=== PATIENT | male | born 1950 | race Caucasian/White ===

== ENCOUNTER 2018-05-25 07:27 | Inpatient (IN) ==
[2018-05-25] MEDS ORDERED: Metoprolol Tartrate 25 MG Tablet PO ONE (08:02)
[2018-05-25] MEDS ORDERED: Chlorhexidine Gluconate 2% 1 Pack (2 Cloths) TOPICAL ONE (08:02)
[2018-05-25] MEDS ORDERED: Chlorhexidine 4% Topical 120 APPLIC/120 ML Bottle TOPICAL SCH (08:15)
[2018-05-25] MEDS ORDERED: Sodium Chlor 0.9% Inj 80 ML, Bupivacaine Liposo PF 1.3% Inj 20 ML P-ARTICULR SCH ×2 (08:15)
[2018-05-25] MEDS ORDERED: Bupivacaine 0.5% Inj 50 ML MDV Vial ONE (08:52)
[2018-05-25] MEDS ORDERED: SODIUM CHLOR 0.9% IV.SIG SCH ×2 (09:00→11:08)
[2018-05-25] MEDS ORDERED: ceFAZolin 2 GM Premix Inj 2 GM/50 ML PIGGYBACK IV.SIG SCH (09:00)
[2018-05-25] MEDS ORDERED: TRANEXAMIC ACID IV.SIG SCH ×2 (09:00→11:08)
[2018-05-25] MEDS ORDERED: Sodium Chlor 0.9% Inj 500 ML IV.SIG SCH (09:00)
[2018-05-25] MEDS ORDERED: Acetaminophen 325 MG Tablet PO PRN (09:22)
[2018-05-25] MEDS ORDERED: Bisacodyl 10 MG Supp RECTAL PRN (09:22)
[2018-05-25] MEDS ORDERED: Tranexamic Acid Inj 0 MG in Sodium Chlor 0.9% Inj 100 ML IV.SIG ONE (09:22)
[2018-05-25] MEDS ORDERED: Aluminum/Magnesium/Simethacone Susp 30 ML UDC PO PRN (09:22)
[2018-05-25] MEDS ORDERED: Post-op Orders (for Pharmacy) OTHER STA (09:22)
--- NOTE | 2018-05-25 09:27 | P.DCO ---
- Physical Therapy Physical Therapy: Gait training Knee: Total knee, Protocol: Right, Gait training, Full weight bearing Right Lower Extremity Weight Bearing: Weight bearing as tolerated Right Lower Extremity Range of Motion: Active ROM (Active, active assisted and passive range of motion. Range of motion goal is 0 degrees extension to 135 degrees of flexion. Range of motion achieved in the operating room was 0 degrees extension to 140 degrees of flexion.) - Nursing Nursing: Dressing changes Dressing changes: Daily dressing change, Coverderm/Primapore Additional instructions: Do not remove the Dermabond Prineo (the tape on the wound). - Certification Need for Home Health services: I have seen patient Benjamín Esparza on 05/25/18. My clinical findings support the need for the requested home health care services because: Need for Home Health Services: Deconditioned with increased weakness, Limited ability to care for self, High risk of falls Homebound Certification: I certify that my clinical findings support that this patient is homebound because: Homebound Certification: Post-op weakness, Unsteady gait/balance, Unsafe to leave home unassisted
[2018-05-25] MEDS ORDERED: Morphine Sulfate Inj 2 MG/ML Vial IV.PUSH PRN (09:45)
[2018-05-25] MEDS ORDERED: Propofol Inj 500 MG/50 ML Vial ONE (09:59)
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
[2018-05-25] MEDS ORDERED: Bupivacaine/Dextrose 0.75% Inj 2 ML Ampul ONE (14:21)
[2018-05-25] MEDS ORDERED: *morphine SULFATE 8 MG/ML PERIprocedure ONLY ONE ×2 (14:22→14:46)
[2018-05-25] MEDS: Ketorolac Inj 30 MG/ML (IVP) Vial IV.PUSH SCH ×3 (14:27→23:50)
--- NOTE | 2018-05-25 14:32 | XR ---
EXAM DATE: 05/25/2018 9:21 AM EDT AGE/SEX: 67 years / Male INDICATIONS: Post op right knee surgery. CLINICAL DATA: This is the patient's initial encounter. Patient reports that signs and symptoms have been present for 1 day and indicates a pain score of Nonresponsive. MEDICAL/SURGICAL HISTORY: Non-responsive. Non-responsive. COMPARISON: POI, XR KNEE COMPLETE, RIGHT, 04/20/2018. . FINDINGS: Status post placement of a right knee prosthesis. There is good position and alignment of the knee pr osthesis. Postsurgical changes are demonstrated. The bony structures are grossly intact. CONCLUSION: Good position and alignment of the knee prosthesis. Electronically signed by: Ronen Bolton MD 05/25/2018 2:30 PM EDT
--- NOTE | 2018-05-25 15:03 | P.CONIM ---
[facility] of [facility] Illness [facility]: 05[facility]25[facility]18 Requesting Physician: Benjamín Neff Reason for Consult: opinion andrecommendations on treatment of patient's hyperlipidemia Primary Care Provider: Markos Cheng MD Family Provider: Markos Cheng MD History of Present Illness: 67-year-old white male with a history of osteoarthritis, hyperlipidemia who has had a long history of right knee pain despite conservative treatment and electively underwent a right total knee arthroplasty with Dr. Neff orthopedic surgery today. Currently he is seen in the PACU in is sleepy from just receiving morphine for pain. He tells me that he usually does not take a medication for his blood pressure and is adequately controlled well at home. He reports he does occasionally struggle with constipation. He has not seen any blood in his stools. He has no other complaints at this time. No chest pain or shortness of breath. He plans to go home with home health care and states that he has a good support system at home. Review of Systems All other systems reviewed negative except as stated in HPI PMFSH - History History Provided By: Patient - Medical History Medical History: Medical History (Last Reviewed 05/25/18 @ 14:56 by Michelle Romero MD) Nausea and vomiting after administration of anesthetic agent Arthritis High cholesterol Separation of left acromioclavicular joint Tear of left biceps muscle Traumatic brain injury - Surgical History Surgical History: Surgical History (Last Reviewed 05/25/18 @ 14:57 by Michelle Romero MD) H/O colonoscopy H/O arthroscopy H/O repair of left rotator cuff H/O shoulder surgery H/O skin graft History of rosalie hole surgery History of repair of anterior cruciate ligament of left knee History of total left knee replacement Hx of tonsillectomy S/P wrist surgery Status post LASIK surgery of both eyes - Family History Family History: Family History (Last Updated 05/25/18 @ 14:57 by Michelle Romero MD) Other Family history unknown - Social History I have reviewed the patient's Social History: Yes - Tobacco History Second Hand Smoke Exposure: No Smoking Status: Never smoker - Alcohol History How Often Do You Have a Drink Containing Alcohol: Monthly or less - Substance Use History Substance History: No History of Abuse - Travel History Recent Travel in the [place] Within the Last 8 Weeks: No Recent Travel Out of the Country Within the Last 8 Weeks: No Medications and Allergies Active Medications: Active Medications Acetaminophen (Tylenol) 650 mg PO Q6H PRN PRN Reason: Pain Less Than 3 On Scale Hydrocodone Bitart/Acetaminophen ([place] 7.5/325) 1 tab PO Q4H PRN PRN Reason: PAIN SCALE 4 TO 6 MODERATE Hydrocodone Bitart/Acetaminophen ([place] 7.5/325) 2 tab PO Q6H PRN PRN Reason: PAIN SCALE 7 TO 10 SEVERE Al Hydrox/Mg Hydrox/Simethicone (Mag-Al Plus Susp Liq) 30 ml PO Q6H PRN PRN Reason: INDIGESTION Al Hydroxide/Mg Hydroxide (Milk Of Magnesia Liq) 30 ml PO BID PRN PRN Reason: Mild Constipation Aspirin (Aspirin Chew) 81 mg PO BID [facility] Bisacodyl (Dulcolax Supp) 10 mg RECTAL DAILY PRN PRN Reason: SEVERE CONSITIPATION Chlorhexidine Gluconate (Hibiclens 4% Topical) 1 applicatio TOPICAL ONCE GOVIND Stop: 05/29/18 08:14 Last Admin: 05/25/18 08:41 Dose: 1 applicatio Sodium Chloride 80 ml/ (Bupivacaine Liposome 20 ml) 0 ml P-ARTICULR ONCE GOVIND Stop: 05/25/18 15:00 Last Admin: 05/25/18 11:13 Dose: 1.3 bag Diphenhydramine HCl (Benadryl) 25 mg PO Q6H PRN PRN Reason: ITCHING Lactated Ringer's (Lr 1000 Ml Inj) 1,000 mls @ 30 mls/hr IV.SIG .Q24H [facility] Stop: 05/26/18 08:14 Last Infusion: 05/25/18 11:55 Dose: Infused Sodium Chloride (Ns Inj) 500 mls @ 30 mls/hr IV.SIG .Q10H GOVIND Last Admin: 05/25/18 14:29 Dose: Not Given Tranexamic Acid 910 mg/ Sodium (Chloride) 109.1 mls @ 200 mls/hr IV.SIG ONCE GOVIND Stop: 05/25/18 15:00 Last Infusion: 05/25/18 11:15 Dose: Infused Tranexamic Acid 910 mg/ Sodium (Chloride) 109.1 mls @ 200 mls/hr IV.SIG ONCE GOVIND Stop: 05/25/18 16:00 Last Admin: 05/25/18 14:10 Dose: 200 mls/hr Cefazolin Sodium/Dextrose (Ancef 2 Gm Premix Inj) 2 gm in 50 mls @ 100 mls/hr IV.SIG TELEPHONE ORDER CLERK [facility] Stop: 05/29/18 08:59 Last Infusion: 05/25/18 11:15 Dose: Infused Cefazolin Sodium 1,000 mg/ (Sodium Chloride) 100 mls @ 200 mls/hr IV.SIG Q6H [facility] Stop: 05/26/18 05:29 Lactated Ringer's (Lr 1000 Ml Inj) 1,000 mls @ 80 mls/hr IV.CONT .[id number] [facility] Last Admin: 05/25/18 14:28 Dose: 80 mls/hr Ketorolac Tromethamine (Toradol Inj) 15 mg IV.PUSH Q6H [facility] Stop: 05/27/18 06:01 Last Admin: 05/25/18 14:27 Dose: 15 mg Lactulose (Lactulose Liq) 30 ml PO DAILY PRN PRN Reason: SEVERE CONSITIPATION Miscellaneous Information (Misc Nursing Information) 1 each OTHER UNSCH PRN PRN Reason: SEE LABEL COMMENTS Stop: 05/26/18 14:26 Morphine Sulfate (Morphine Inj) 2 mg IV.PUSH Q3H PRN PRN Reason: BREAKTHROUGH PAIN Ondansetron HCl (Zofran Odt) 4 mg PO Q6H PRN PRN Reason: NAUSEA OR VOMITING Pravastatin Sodium (Pravachol) 40 mg PO DAILY [facility] Senna/Docusate Sodium (Ellen-Colace) 1 tab PO BID [facility] Sennosides (Senokot) 17.2 mg PO BID PRN PRN Reason: Moderate Constipation Sodium Chloride (Ns Flush) 2 ml IV.FLUSH PRN PRN PRN Reason: FLUSH AFTER USING IV ACCESS Sodium Chloride (Ns Flush) 2 ml IV.FLUSH BID [facility] Zolpidem Tartrate (Ambien) 5 mg PO HS PRN PRN Reason: INSOMNIA Allergies Allergy/AdvReac Type Severity Reaction Status Date / Time No Known Allergies Allergy Verified 05/25/18 08:25 Home Medications Medication Instructions Recorded Confirmed Type naproxen sodium [Aleve] 220 mg PO BID PRN 05/17/18 05/25/18 History pravastatin 40 mg PO DAILY 05/17/18 05/25/18 History Exam Vital signs: Vital Signs 05/25/18 08:29 05/25/18 09:35 Pulse Rate 61 50 L Respiratory Rate 16 Blood Pressure 112/62 Pulse Oximetry 99 98 Intake & Output 05/24/18 05/25/18 05/25/18 18:59 06:59 18:59 Intake Total 1659.1 / 1659.1 Output Total 100 / 100 Balance 1559.1 / 1559.1 Weight 91 kg Intake: IV 1159.1 / 1159.1 LR 1000 mL Inj 1,000 ML @ 30 1000 / 1000 mls/hr IV.SIG .Q24H [facility] Rx#: [id number] Cyklokapron Inj 910 MG In NS 109.1 / 109.1 Inj 100 ML @ 200 mls/hr IV.SIG ONCE GOVIND Rx#:[id number] Ancef 2 GM Premix Inj 2 gm In 50 / 50 50 ml @ 100 mls/hr IV.SIG TELEPHONE ORDER CLERK GOVIND Rx#:[id number] Anesthesia Amount 500 / 500 Output: Estimated Blood Loss 100 / 100 Other: Weight On Admission 91 kg Narrative: GENERAL: Well-nourished well-developed white male in no acute distress sleepy but arousable SKIN: Warm and dry. HEAD: Atraumatic. Normocephalic. EYES: Pupils equal and round. No scleral icterus. No injection or drainage. ENT: No nasal bleeding or discharge. Mucous membranes pink and moist. NECK: Trachea midline. No JVD. CARDIOVASCULAR: Regular rate and rhythm. RESPIRATORY: No accessory muscle use. Clear to auscultation. Breath sounds equal bilaterally. GASTROINTESTINAL: Abdomen soft, non-tender, nondistended. Hepatic and splenic margins not palpable. MUSCULOSKELETAL: Right lower extremity stabilizing the splint. Bilateral teds NEUROLOGIC: Alert but sleepy due to recent medication given but arousable and oriented to person place and time, was able to move bilateral upper extremities without any difficulty normal speech. Results - Labs Labs: Laboratory Results - last 24 hr 05/25/18 08:16 Blood Type A Positive Antibody Screen Negative - Imaging Impressions Knee X-Ray 05/25/18 09:21 CONCLUSION: Good position and alignment of the knee prosthesis. Assessment and Plan - Plan 67-year-old white male with osteoarthritis 1. Status post right total knee arthroplastycontinue postoperative care, pain control, bowel regimen, physical therapy per orthopedic surgery Dr. Neff 2. Hyperlipidemiacontinue with statin 3. DVT prophylaxis -aspirin per orthopedic surgery Thank you for this consultation.
[2018-05-25] MEDS ORDERED: HYDROmorphone PF Inj 2 MG/ML Vial ONE (15:20)
[2018-05-25] MEDS ORDERED: Influenza (Quadrivalent) Vaccine 0.5 ML Syringe IM ONE (20:00)
[2018-05-25] MEDS: Senna/Docusate Sodium 8.6/50 MG Tablet PO SCH (20:51)
[2018-05-25] MEDS ORDERED: Zolpidem Tartrate 5 MG Tablet PO PRN (21:00)
[2018-05-26] MEDS: Ketorolac Inj 30 MG/ML (IVP) Vial IV.PUSH SCH ×3 (06:01→18:26)
[2018-05-26 07:09] LABS: Hematocrit 33.5 % (39.0-51.0); Hemoglobin 11.6 gm/dL (13.0-17.0)
--- NOTE | 2018-05-26 07:43 | P.PNOP ---
Subjective Interval history: Postop day #1 He is doing well. He has minimal complaints related to his knee at this time. There is minor pain. He does feel that the effects of the medications are still present with him. Physical therapy reports that the ambulation distance was 40 feet. The range of motion was 0 degrees extension to 95 degrees of flexion. Physical Exam Vital signs: Vital Signs 05/25/18 08:29 05/25/18 09:35 05/25/18 14:01 Temperature 97.2 F L Pulse Rate 61 50 L 69 Respiratory Rate 16 12 Blood Pressure 112/62 119/69 Pulse Oximetry 99 98 97 05/25/18 14:15 05/25/18 14:30 05/25/18 14:45 Temperature Pulse Rate 65 55 L 52 L Respiratory Rate 12 11 L 10 L Blood Pressure 119/65 110/56 L 105/56 L Pulse Oximetry 98 98 100 05/25/18 15:00 05/25/18 15:15 05/25/18 15:30 Temperature 97.5 F L Pulse Rate 50 L 52 L 54 L Respiratory Rate 10 L 12 14 Blood Pressure 118/62 116/51 L 104/55 L Pulse Oximetry 99 99 96 05/25/18 15:49 05/25/18 16:00 05/25/18 17:00 Temperature Pulse Rate 50 L 57 L Respiratory Rate 14 12 12 Blood Pressure 111/56 L 117/59 L Pulse Oximetry 95 95 05/25/18 19:44 05/25/18 23:50 05/26/18 04:00 Temperature 97.6 F 97.5 F L 97.8 F Pulse Rate 52 L 59 L 61 Respiratory Rate 18 18 18 Blood Pressure 137/65 123/62 134/64 Pulse Oximetry 96 97 98 Intake & Output 05/25/18 05/26/18 05/26/18 18:59 06:59 18:59 Intake Total 2088.2 / 2088.2 1680 / 1680 Output Total 530 / 530 140 / 140 Balance 1558.2 / 1558.2 1540 / 1540 Weight 91 kg 103.2 kg Intake: IV 1368.2 / 1368.2 1200 / 1200 LR 1000 mL Inj 1,000 ML @ 80 1000 / 1000 mls/hr IV.CONT .[id number] [facility] Rx# :[id number] LR 1000 mL Inj 1,000 ML @ 30 1000 / 1000 mls/hr IV.SIG .Q24H GOV[facility] Rx#: [id number] Cyklokapron Inj 910 MG In NS 218.2 / 218.2 Inj 100 ML @ 200 mls/hr IV.SIG ONCE GOVIND Rx#:[id number] Ancef 2 GM Premix Inj 2 gm In 50 / 50 50 ml @ 100 mls/hr IV.SIG DIALYSIS NURSE GOVIND Rx#:[id number] Ancef Inj 1,000 MG In NS Inj 100 / 100 200 / 200 100 ML @ 200 mls/hr IV.SIG Q6H G[facility]IND Rx#:[id number] Oral 220 / 220 480 / 480 Anesthesia Amount 500 / 500 Output: Urine 300 / 300 Estimated Blood Loss 100 / 100 Wound Drainage 130 / 130 140 / 140 # 1 Right Knee Hemovac 130 / 130 140 / 140 Other: # Voids 2 # Bowel Movements 0 Weight On Admission 91 kg Narrative: He is resting comfortably, supine in bed. The neurovascular status is intact. The dressing is dry and intact. Results - Labs CBC & Chem 7: 05/26/18 05:45 Laboratory Results - last 24 hr 05/25/18 05/26/18 08:16 05:45 Hgb 11.6 L Hct 33.5 L Blood Type A Positive Antibody Screen Negative - Imaging Impressions Knee X-Ray 05/25/18 09:21 CONCLUSION: Good position and alignment of the knee prosthesis. - Procedures Right total knee arthroplasty using Roman Triathlon prosthesis (uncemented) on 05/25/2018. Assessment and Plan - Ortho Post Op Day # 1 - Problem List (1) Status post total right knee replacement not using cement Code(s): Z96.651 - Presence of right artificial knee joint Status: Acute Plan: Continue postop care and PT. - Assessment and Plan Condition: Good. Orthopedically stable. DVT prophylaxis: TEDs, aspirin, sequentials. Discharge plans: Home with home health care. An appointment was scheduled through the office. Prescriptions: [place] 7.5/325; Patient is having significant pain caused by a total knee arthroplasty which will last more than 3 days. Trial of Tylenol has not helped. I believe that it is medically necessary to treat patients pain because it is affecting patients ability to participate in postoperative rehabilitation and perform activities of daily living in a comfortable and efficient manner.
--- NOTE | 2018-05-26 08:22 | P.DS ---
Date of admission: 05/25/18 07:27 Primary care physician: Markos Cheng MD Attending physician on discharge: Benjamín Neff Anticipated date of discharge: 05/26/18 Brief History from admission: This 67-year-old man has had long-standing right knee pain secondary to osteoarthritis that is probably posttraumatic in nature. He has not responded to conservative measures including anti-inflammatory agents, analgesics, activity modification and occasional ambulatory aids. Physical findings showed genu varum with crepitation on range of motion in the medial compartment and patellofemoral compartment, medial laxity and tenderness on motion. Imaging studies showed significant tricompartmental arthritis with subchondral sclerosis in the medial compartment and loss of articular cartilage in areas of all compartments. There were osteophytes as well. 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 The above noted operative procedure was carried out that day. Preoperatively prophylactic antibiotics were administered Ancef according to protocol. These were continued postoperatively. The patient also received tranexamic acid to help with hemostasis according to protocol. In the postanesthesia care unit mechanical methods of DVT prophylaxis were initiated in the form of MARCOS stockings and sequentials. Physical therapy was initiated on the day of surgery. On postoperative day #1 physical therapy continued. DVT prophylaxis with aspirin 81 mg was initiated at this time. The patient continued physical therapy throughout the hospitalization. The distance walked and range of motion improved throughout the hospitalization. The patient was discharged on postoperative day 1 with the disposition being to home with home health care. An appointment for follow-up was made prior to admission. - Time Spent with Patient Total time spent providing and/or coordinating discharge services: Less than 30 minutes - Quality: AMI Clinical Trial Participant: No - Quality: VTE Deep Vein Thrombosis/Pulmonary Embolism Present on Admission: No Exam Vital signs: Vital Signs 05/25/18 08:29 05/25/18 09:35 05/25/18 14:01 Temperature 97.2 F L Pulse Rate 61 50 L 69 Respiratory Rate 16 12 Blood Pressure 112/62 119/69 Pulse Oximetry 99 98 97 05/25/18 14:15 05/25/18 14:30 05/25/18 14:45 Temperature Pulse Rate 65 55 L 52 L Respiratory Rate 12 11 L 10 L Blood Pressure 119/65 110/56 L 105/56 L Pulse Oximetry 98 98 100 05/25/18 15:00 05/25/18 15:15 05/25/18 15:30 Temperature 97.5 F L Pulse Rate 50 L 52 L 54 L Respiratory Rate 10 L 12 14 Blood Pressure 118/62 116/51 L 104/55 L Pulse Oximetry 99 99 96 05/25/18 15:49 05/25/18 16:00 05/25/18 17:00 Temperature Pulse Rate 50 L 57 L Respiratory Rate 14 12 12 Blood Pressure 111/56 L 117/59 L Pulse Oximetry 95 95 05/25/18 19:44 05/25/18 23:50 05/26/18 04:00 Temperature 97.6 F 97.5 F L 97.8 F Pulse Rate 52 L 59 L 61 Respiratory Rate 18 18 18 Blood Pressure 137/65 123/62 134/64 Pulse Oximetry 96 97 98 Intake & Output 05/25/18 05/26/18 05/26/18 18:59 06:59 18:59 Intake Total 2088.2 / 2088.2 1680 / 1680 Output Total 530 / 530 140 / 140 Balance 1558.2 / 1558.2 1540 / 1540 Weight 91 kg 103.2 kg Intake: IV 1368.2 / 1368.2 1200 / 1200 LR 1000 mL Inj 1,000 ML @ 80 1000 / 1000 mls/hr IV.CONT .[id number] GOVIND Rx# :[id number] LR 1000 mL Inj 1,000 ML @ 30 1000 / 1000 mls/hr IV.SIG .Q24H GOVIND Rx#: [id number] Cyklokapron Inj 910 MG In NS 218.2 / 218.2 Inj 100 ML @ 200 mls/hr IV.SIG ONCE GOVIND Rx#:[id number] Ancef 2 GM Premix Inj 2 gm In 50 / 50 50 ml @ 100 mls/hr IV.SIG MICA INSPECTOR GOVIND Rx#:[id number] Ancef Inj 1,000 MG In NS Inj 100 / 100 200 / 200 100 ML @ 200 mls/hr IV.SIG Q6H GOVIND Rx#:[id number] Oral 220 / 220 480 / 480 Anesthesia Amount 500 / 500 Output: Urine 300 / 300 Estimated Blood Loss 100 / 100 Wound Drainage 130 / 130 140 / 140 # 1 Right Knee Hemovac 130 / 130 140 / 140 Other: # Voids 2 # Bowel Movements 0 Weight On Admission 91 kg Narrative: He was resting comfortably, supine in bed. The neurovascular status is intact. The dressing is dry and intact. Results Procedures completed during hospitalization: Right total knee arthroplasty using Roman Triathlon prosthesis (uncemented) on 05/25/2018. Labs on day of discharge: Labs from last 24 hours 05/26/18 05/25/18 05:45 08:16 Hgb 11.6 L Hct 33.5 L Blood Type A Positive Antibody Screen Negative - Impressions ITS Impressions Knee X-Ray 05/25/18 09:21 CONCLUSION: Good position and alignment of the knee prosthesis. Discharge Plan - Discharge Disposition Patient Disposition: /Home Health Service - Discharge Condition Condition: Stable - Discharge Order Discharge Orders: Discharge Order (Routine); Ordered 05/26/18 Ordered By: Benjamín Neff - Discharge Details Anticipated Discharge Date: 05/26/18 - Physicians Team Primary Care Provider: Markos Cheng Attending Provider: Benjamín Neff Other Providers: Michelle Romero MD - Rxs /Orders / Referrals /Forms Prescriptions: New aspirin 81 mg Tablet,Chewable 81 mg PO BID RF: 0 hydrocodone-acetaminophen 7.5-325 mg Tablet 1 tab PO Q4H PRN (Reason: Pain, Severe) 7 Days Qty: 42 RF: 0 Continue naproxen sodium [Aleve] 220 mg Tablet 220 mg PO BID PRN (Reason: Pain) pravastatin 40 mg Tablet 40 mg PO DAILY Referrals: Benjamín Neff MD [Physician] - See Instructions Markos Cheng MD [Primary Care Provider] - See Instructions - Discharge Instructions Patient Printed Instructions: Knee Replacement (DC)
[2018-05-26] MEDS: Senna/Docusate Sodium 8.6/50 MG Tablet PO SCH ×2 (08:59→20:29)
--- NOTE | 2018-05-26 11:06 | P.PNIM ---
Subjective Interval history: Doing well. No other concerns at this time. Pain controlled. Waiting for physical therapy wants to go home if able to be cleared. Physical Exam Vital signs: Vital Signs 05/25/18 14:01 05/25/18 14:15 05/25/18 14:30 Temperature 97.2 F L Pulse Rate 69 65 55 L Respiratory Rate 12 12 11 L Blood Pressure 119/69 119/65 110/56 L Pulse Oximetry 97 98 98 05/25/18 14:45 05/25/18 15:00 05/25/18 15:15 Temperature Pulse Rate 52 L 50 L 52 L Respiratory Rate 10 L 10 L 12 Blood Pressure 105/56 L 118/62 116/51 L Pulse Oximetry 100 99 99 05/25/18 15:30 05/25/18 15:49 05/25/18 16:00 Temperature 97.5 F L Pulse Rate 54 L 50 L Respiratory Rate 14 14 12 Blood Pressure 104/55 L 111/56 L Pulse Oximetry 96 95 05/25/18 17:00 05/25/18 19:44 05/25/18 23:50 Temperature 97.6 F 97.5 F L Pulse Rate 57 L 52 L 59 L Respiratory Rate 12 18 18 Blood Pressure 117/59 L 137/65 123/62 Pulse Oximetry 95 96 97 05/26/18 04:00 05/26/18 08:00 Temperature 97.8 F 98.4 F Pulse Rate 61 68 Respiratory Rate 18 19 Blood Pressure 134/64 129/64 Pulse Oximetry 98 97 Intake & Output 05/25/18 05/26/18 05/26/18 18:59 06:59 18:59 Intake Total 2088.2 / 2088.2 1680 / 1680 Output Total 530 / 530 140 / 140 Balance 1558.2 / 1558.2 1540 / 1540 Weight 91 kg 103.2 kg Intake: IV 1368.2 / 1368.2 1200 / 1200 LR 1000 mL Inj 1,000 ML @ 80 1000 / 1000 mls/hr IV.CONT .[id number] GOVIND Rx# :[id number] LR 1000 mL Inj 1,000 ML @ 30 1000 / 1000 mls/hr IV.SIG .Q24H GOVIND Rx#: [id number] Cyklokapron Inj 910 MG In NS 218.2 / 218.2 Inj 100 ML @ 200 mls/hr IV.SIG ONCE GOVIND Rx#:[id number] Ancef 2 GM Premix Inj 2 gm In 50 / 50 50 ml @ 100 mls/hr IV.SIG FILM CRITIC GOVIND Rx#:[id number] Ancef Inj 1,000 MG In NS Inj 100 / 100 200 / 200 100 ML @ 200 mls/hr IV.SIG Q6H GOVIND Rx#:[id number] Oral 220 / 220 480 / 480 Anesthesia Amount 500 / 500 Output: Urine 300 / 300 Estimated Blood Loss 100 / 100 Wound Drainage 130 / 130 140 / 140 # 1 Right Knee Hemovac 130 / 130 140 / 140 Other: # Voids 2 # Bowel Movements 0 Weight On Admission 91 kg Narrative: GENERAL: This is a well-nourished, well-developed patient, in no apparent distress. CARDIOVASCULAR: Regular rate and rhythm RESPIRATORY: Clear to auscultation. Breath sounds equal bilaterally. No wheezes , rales, or rhonchi. GASTROINTESTINAL: Abdomen soft, non-tender, nondistended. Normal active bowel sounds MUSCULOSKELETAL: Right knee bandage clean dry intact. Drain in place. NEURO: Alert & Oriented x4 to person, place, time, situation. Moves all ext x4 Results - Labs CBC & Chem 7: 05/26/18 05:45 Laboratory Results - last 24 hr 05/26/18 05:45 Hgb 11.6 L Hct 33.5 L - Imaging Impressions Knee X-Ray 05/25/18 09:21 CONCLUSION: Good position and alignment of the knee prosthesis. - Procedures Right total knee arthroplasty using Roman Triathlon prosthesis (uncemented) on 05/25/2018. Assessment and Plan - Plan 67-year-old white male with osteoarthritis 1. Status post operative day #1 right total knee arthroplastycontinue postoperative care, pain control, bowel regimen, physical therapy per orthopedic surgery Dr. Neff 2. Hyperlipidemiacontinue with statin 3. DVT prophylaxis -aspirin per orthopedic surgery Patient medically clear to be discharged to home. Discharge Planning: Home with home health care. Progress Note: Quality - AMI Clinical Trial Participant: No
[2018-05-27] MEDS: Ketorolac Inj 30 MG/ML (IVP) Vial IV.PUSH SCH ×2 (00:36→06:09)
[2018-05-27 07:14] LABS: Hematocrit 33.7 % (39.0-51.0); Hemoglobin 11.5 gm/dL (13.0-17.0)
--- NOTE | 2018-05-27 07:27 | P.PNOP ---
Subjective Interval history: Postop day #2 He is doing much better. He has much less pain. He no longer has vertigo. He no longer has hypotension. Physical therapy reports that the ambulation distance was 30 feet. The range of motion was 0 degrees extension to 95 degrees of flexion. Physical Exam Vital signs: Vital Signs 05/26/18 08:00 05/26/18 10:05 05/26/18 10:20 Temperature 98.4 F Pulse Rate 68 50 L 65 Respiratory Rate 19 15 17 Blood Pressure 129/64 65/45 L 95/66 L Pulse Oximetry 97 96 98 05/26/18 10:30 05/26/18 12:00 05/26/18 13:30 Temperature 97.6 F Pulse Rate 72 71 Respiratory Rate 17 19 17 Blood Pressure 100/70 131/55 L 65/55 L Pulse Oximetry 97 96 95 05/26/18 13:45 05/26/18 14:00 05/26/18 16:00 Temperature 97.4 F L Pulse Rate 77 77 69 Respiratory Rate 18 19 Blood Pressure 95/70 L 108/72 139/67 Pulse Oximetry 96 95 98 05/26/18 20:00 05/27/18 00:00 05/27/18 04:00 Temperature 97.7 F 98 F 97.9 F Pulse Rate 60 66 70 Respiratory Rate 18 18 18 Blood Pressure 147/69 H 122/60 139/66 Pulse Oximetry 100 96 98 Intake & Output 05/26/18 05/27/18 05/27/18 18:59 06:59 18:59 Output Total 1300 / 1300 180 / 180 Balance -1300 / -1300 -180 / -180 Output: Urine 1200 / 1200 Wound Drainage 100 / 100 180 / 180 # 1 Right Knee Hemovac 100 / 100 180 / 180 Other: # Voids 2 Date of Last Bowel Movement 05/25/18 05/25/18 Narrative: He is resting comfortably, supine in bed. The dressing is dry and intact. His neurovascular status is intact. Results - Labs CBC & Chem 7: 05/27/18 04:25 Laboratory Results - last 24 hr 05/27/18 04:25 Hgb 11.5 L Hct 33.7 L - Procedures Right total knee arthroplasty using Roman Triathlon prosthesis (uncemented) on 05/25/2018. Assessment and Plan - Ortho Post Op Day # 2 - Assessment and Plan Condition: Good. Orthopedically stable. DVT prophylaxis: TEDs, aspirin, sequentials. Discharge plans: Home with home health care. An appointment was scheduled through the office. Prescriptions: [place] 7.5/325; Patient is having significant pain caused by a total knee arthroplasty which will last more than 3 days. Trial of Tylenol has not helped. I believe that it is medically necessary to treat patients pain because it is affecting patients ability to participate in postoperative rehabilitation and perform activities of daily living in a comfortable and efficient manner.
[2018-05-27 07:48] VITALS: BP 116/57; PULSE 67; RESP 16; TEMP 98.6; O2SAT 94
[2018-05-27] MEDS: Senna/Docusate Sodium 8.6/50 MG Tablet PO SCH (08:57)
--- NOTE | 2018-05-27 11:11 | P.PN ---
Subjective Interval history: Patient doing well overnight. Reports that he is doing well with PT. Patient is tolerating p.o., voiding/stooling well. No overnight concerns per RN. Physical Exam Vital signs: Vital Signs 05/26/18 12:00 05/26/18 13:30 05/26/18 13:45 Temperature 97.6 F Pulse Rate 71 77 Respiratory Rate 19 17 18 Blood Pressure 131/55 L 65/55 L 95/70 L Pulse Oximetry 96 95 96 05/26/18 14:00 05/26/18 16:00 05/26/18 20:00 Temperature 97.4 F L 97.7 F Pulse Rate 77 69 60 Respiratory Rate 19 18 Blood Pressure 108/72 139/67 147/69 H Pulse Oximetry 95 98 100 05/27/18 00:00 05/27/18 04:00 05/27/18 07:47 Temperature 98 F 97.9 F 98.6 F Pulse Rate 66 70 67 Respiratory Rate 18 18 16 Blood Pressure 122/60 139/66 116/57 L Pulse Oximetry 96 98 94 L Intake & Output 05/26/18 05/27/18 05/27/18 18:59 06:59 18:59 Intake Total 360 / 360 Output Total 1300 / 1300 180 / 180 40 / 40 Balance -1300 / -1300 180 / 180 -40 / -40 Intake: Oral 360 / 360 Output: Urine 1200 / 1200 Wound Drainage 100 / 100 180 / 180 40 / 40 # 1 Right Knee Hemovac 100 / 100 180 / 180 40 / 40 Other: # Voids 2 Date of Last Bowel Movement 05/25/18 05/25/18 05/24/18 Narrative: GENERAL: Well-nourished male, in NAD, lying comfortably in bed. SKIN: Warm and dry. HEAD: Normocephalic. EYES: No scleral icterus. No injection or drainage. NECK: Supple, trachea midline. No JVD or lymphadenopathy. CARDIOVASCULAR: Regular rate and rhythm without murmurs, gallops, or rubs. RESPIRATORY: Breath sounds equal bilaterally. No accessory muscle use. GASTROINTESTINAL: Abdomen soft, non-tender, nondistended. MUSCULOSKELETAL: No cyanosis, or edema. R knee dressing in place, C/D/I. BACK: Nontender without obvious deformity. No CVA tenderness. NEURO: AAO x3, no focal deficits, strength 5/5 x 4. Results - Labs CBC & Chem 7: 05/27/18 04:25 Laboratory Results - last 24 hr 05/27/18 04:25 Hgb 11.5 L Hct 33.7 L - Procedures Right total knee arthroplasty using [place] Triathlon prosthesis (uncemented) on 05/25/2018. 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 Postoperative care Continue postoperative care, pain control, bowel regimen, physical therapy per orthopedic surgery Dr. Neff 2. Hyperlipidemia Continue statin 3. DVT prophylaxis: ASA per ortho 4. Dispo: Patient medically cleared to be discharged to home with HH per Ortho, on [place] for pain mgmt Per Ortho reccs 05/27: Discharge plans: Home with home health care. An appointment was scheduled through the office. Prescriptions: [place] 7.5/325; Patient is having significant pain caused by a total knee arthroplasty which will last more than 3 days. Trial of Tylenol has not helped. I believe that it is medically necessary to treat patients pain because it is affecting patients ability to participate in postoperative rehabilitation and perform activities of daily living in a comfortable and efficient manner. Discussed Condition With: patient, RN Progress Note: Quality - AMI Clinical Trial Participant: Adelaida
== END 2018-05-27 11:51 | disposition home health service (06) ==
LOC: HSDI 07:27 → N06 18:08
PROVIDERS: ADMIT Orthopaedic Surgery; ATTEND Orthopaedic Surgery